=== PATIENT | male | born 1970 | race African-American/Black ===

== ENCOUNTER 2022-02-21 06:04 | Emergency (ER) | payer SELFPAY ==
--- OUTSIDE RECORDS SUMMARY | 2022-02-21 06:07 | XMS REPORT | Continuity of Care Document ---
:1970 Author Organization [facility] t Address [address] [place] [address] Care Team Providers Name Role Phone JOSIAH MELGOZA Attending Clinician Unavailable Payers Payer Name Policy Type Policy Number Effective Date Expiration Date [employer] [id number] 2016 NON-CONTRACT 00:00:00 GENERIC Problems This patient has no known problems. Allergies, Adverse Reactions, Alerts Allergy Allergy Status Severity Reaction(s) Onset Inactive Treating Comm ents Source Name Type Date Date Clinician NO KNOWN Drug Active [facility] ALLERGIE Class [facility] Medications This patient has no known medications. Procedures This patient has no known procedures. Encounters Start End Encounter Admission Attending Care Care Encounter Source Date/Time Date/Time Type Type Clinicians Facility Department ID 2019-11-30 2019-11-30 Outpatient Pop MELGOZA [facility] [id number] [facility] 11:15:00 11:15:00 JOSIAH [facility] Results This patient has no known results.
--- NOTE | 2022-02-21 08:34 | EDPHYS ---
Physician Documentation [facility] Name: Ty Chaudhry Age: 51 yrs Sex: Male : 1970 Arrival Date: 02/21/2022 Time: 06:09 Bed DIS3 Private MD: ED Physician Yoandy Scott HPI: 02/21 08:29 This 51 yrs old Black Male presents to ER via Ambulatory with complaints of Toothache. nikhil 08:29 The patient presents with pain, swelling. The problem is located in the lower left nikhil third molar. Onset: The symptoms/episode began/occurred 3 day(s) ago. Duration: The symptoms are continuous, and are steadily getting worse. Modifying factors: The symptoms are alleviated by nothing, the symptoms are aggravated by chewing, food. Associated signs and symptoms: The patient has no apparent associated signs or symptoms. Severity of symptoms: At their worst the symptoms were mild, in the emergency department the symptoms are unchanged. The patient has not experienced similar symptoms in the past. Historical: - Allergies: 06:43 No Known Allergies; vc1 - Home Meds: 06:43 None [Active]; vc1 - PMHx: 06:43 None; vc1 - PSHx: 06:43 None; vc1 - Immunization history:: Client reports receiving the 2nd dose of the Covid vaccine. - Social history:: Smoking status: Patient denies any tobacco usage or history of. - Family history:: not pertinent. ROS: 08:29 Constitutional: Negative for fever, chills, and weight loss, Eyes: Negative for injury, nikhil pain, redness, and discharge, Neck: Negative for injury, pain, and swelling, Cardiovascular: Negative for chest pain, palpitations, and edema, Respiratory: Negative for shortness of breath, cough, wheezing, and pleuritic chest pain, Abdomen/GI: Negative for abdominal pain, nausea, vomiting, diarrhea, and constipation, Back: Negative for injury and pain, : Negative for injury, bleeding, discharge, and swelling, MS/Extremity: Negative for injury and deformity, Skin: Negative for injury, rash, and discoloration, Neuro: Negative for headache, weakness, numbness, tingling, and seizure, Psych: Negative for depression, anxiety, suicide ideation, homicidal ideation, and hallucinations, Allergy/Immunology: Negative for hives, rash, and allergies, Hematologic/Lymphatic: Negative for swollen nodes, abnormal bleeding, and unusual bruising. 08:29 ENT: Positive for Teeth pain Exam: 08:29 Constitutional: This is a well developed, well nourished patient who is awake, alert, nikhil and in no acute distress. Head/Face: Normocephalic, atraumatic. Eyes: Pupils equal round and reactive to light, extra-ocular motions intact. Lids and lashes normal. Conjunctiva and sclera are non-icteric and not injected. Cornea within normal limits. Periorbital areas with no swelling, redness, or edema. Neck: Trachea midline, no thyromegaly or masses palpated, and no cervical lymphadenopathy. Supple, full range of motion without nuchal rigidity, or vertebral point tenderness. No Meningismus. Chest/axilla: Normal chest wall appearance and motion. Nontender with no deformity. No lesions are appreciated. Cardiovascular: Regular rate and rhythm with a normal S1 and S2. No gallops, murmurs, or rubs. Normal PMI, no JVD. No pulse deficits. Respiratory: Lungs have equal breath sounds bilaterally, clear to auscultation and percussion. No rales, rhonchi or wheezes noted. No increased work of breathing, no retractions or nasal flaring. Abdomen/GI: Soft, non-tender, with normal bowel sounds. No distension or tympany. No guarding or rebound. No evidence of tenderness throughout. Back: No spinal tenderness. No costovertebral tenderness. Full range of motion. Male : Normal genitalia with no discharge or lesions. Skin: Warm, dry with normal turgor. Normal color with no rashes, no lesions, and no evidence of cellulitis. MS/ Extremity: Pulses equal, no cyanosis. Neurovascular intact. Full, normal range of motion. Neuro: Awake and alert, GCS 15, oriented to person, place, time, and situation. Cranial nerves II-XII grossly intact. Motor strength 5/5 in all extremities. Sensory grossly intact. Cerebellar exam normal. Normal gait. Psych: Awake, alert, with orientation to person, place and time. Behavior, mood, and affect are within normal limits. 08:29 ENT: Mouth: Lips: normal, Oral mucosa: normal, pink and intact, moist, Gums: reddened. Vital Signs: 06:42 BP 140 / 81; Pulse 71; Resp 17; Temp 97.0; Pulse Ox 99% ; Weight 77.11 kg; Height 5 ft. vc1 5 in. (165.10 cm); Pain 8/10; 06:42 Body Mass Index 28.29 (77.11 kg, 165.10 cm) vc1 MDM: 07:17 Patient medically screened. nikhil 08:31 Differential diagnosis: dental caries, gingivitis, dental abscess. Data reviewed: vital nikhil signs, nurses notes. Data interpreted: desk monitor: rate is 71 beats/min, rhythm is regular, Pulse oximetry: on room air is 99 %. Counseling: I had a detailed discussion with the patient and/or guardian regarding: the historical points, exam findings, and any diagnostic results supporting the discharge/admit diagnosis, the need for outpatient follow up, for definitive care, a dentist, an oral maxilofacial specialist. Administered Medications: 08:48 Drug: Augmentin (Amoxicillin-Clavulanate) 875 mg Route: PO; iw 09:10 Follow up: Response: No adverse reaction iw Disposition Summary: 02/21/22 08:33 Discharge Ordered Location: Home nikhil Problem: new nikhil Symptoms: have improved nikhil Condition: Stable nikhil Diagnosis - Dental caries, unspecified nikhil - Dental root caries nikhil Followup: nikhil - With: Private Physician - When: 2 - 3 days - Reason: Recheck today's complaints, Continuance of care, Re-evaluation by your physician Followup: nikhil - With: Ty Strickland DDS - When: 2 - 3 days - Reason: Recheck today's complaints, Continuance of care, Re-evaluation by your physician Discharge Instructions: - Discharge Summary Sheet nikhil - Dental Caries, Adult nikhil - Dental Pain nikhil - Dental Pain, [id number] nikhil - Diet and Dental Disease nikhil - Preventive Dental Care, Adult [facility] Forms: - Medication Reconciliation Form nikhil - Thank You Letter nikhil - Antibiotic Education [facility] - Prescription Opioid Use [facility] Prescriptions: - Amoxicillin 500 mg Oral Capsule - take 1 capsule by ORAL route every 8 hours for 10 days; 30 tablet; Refills: 0, nikhil Product Selection Permitted - Tylenol-Codeine #3 300 mg-30 mg Oral - take 2 tablet by ORAL route every 6 hours; 20 tablet; Refills: 0, Product [facility] Selection Permitted Signatures: Yoandy Scott MD MD cha Williams, Irene RN RN iw Leny Randall, RN RN vc1
--- NOTE | 2022-02-21 08:34 | ER ---
Nurse's Notes [facility] Name: Ty Chaudhry Age: 51 yrs Sex: Male : 1970 Arrival Date: 02/21/2022 Time: 06:09 Bed DIS3 Private MD: Diagnosis: Dental caries, unspecified;Dental root caries Presentation: 02/21 06:41 Chief complaint: Patient states: I've had a bad toothache for a couple of weeks. It is vc1 in the back top left of my mouth. I'm just worried because I ended up on a ventilator in 1997 because of an infected tooth.". 06:42 Coronavirus screen: Vaccine status: Patient reports receiving the 2nd dose of the covid vc1 vaccine. Plus booster; [employer] At this time, the client does not indicate any symptoms associated with coronavirus-19. Ebola Screen: No symptoms or risks identified at this time. Initial Sepsis Screen: Does the patient meet any 2 criteria? No. Patient's initial sepsis screen is negative. Does the patient have a suspected source of infection? No. Patient's initial sepsis screen is negative. Risk Assessment: Do you want to hurt yourself or someone else? Patient reports no desire to harm self or others. Onset of symptoms is unknown. 06:42 Method Of Arrival: Ambulatory vc1 06:42 Acuity: CAROLYN 5 vc1 Triage Assessment: 06:44 General: Appears in no apparent distress. uncomfortable, Behavior is calm, cooperative, vc1 appropriate for age. Pain: Complains of pain in lower left third molar Pain currently is 8 out of 10 on a pain scale. EENT: Reports pain in lower left third molar. Neuro: Level of Consciousness is awake, alert, obeys commands, Oriented to person, place, time, situation, Appropriate for age. Cardiovascular: No deficits noted. Respiratory: No deficits noted. GI: No deficits noted. : No deficits noted. Derm: No deficits noted. Historical: - Allergies: 06:43 No Known Allergies; vc1 - Home Meds: 06:43 None [Active]; vc1 - PMHx: 06:43 None; vc1 - PSHx: 06:43 None; vc1 - Immunization history:: Client reports receiving the 2nd dose of the Covid vaccine. - Social history:: Smoking status: Patient denies any tobacco usage or history of. - Family history:: not pertinent. Screenin:44 Abuse screen: Denies threats or abuse. Nutritional screening: No deficits noted. vc1 Tuberculosis screening: No symptoms or risk factors identified. Fall Risk None identified. Vital Signs: 06:42 BP 140 / 81; Pulse 71; Resp 17; Temp 97.0; Pulse Ox 99% ; Weight 77.11 kg; Height 5 ft. vc1 5 in. (165.10 cm); Pain 8/10; 06:42 Body Mass Index 28.29 (77.11 kg, 165.10 cm) vc1 ED Course: 06:09 Patient arrived in ED. bp1 06:43 Triage completed. vc1 06:46 Arm band placed on left wrist. vc1 06:46 Patient has correct armband on for positive identification. vc1 07:17 Yoandy Scott MD is Attending Physician. nikhil 08:14 Yue Fernandes, RN is Primary Nurse. iw 08:33 Ty Strickland DDS is Referral Physician. nikhil Administered Medications: 08:48 Drug: Augmentin (Amoxicillin-Clavulanate) 875 mg Route: PO; iw 09:10 Follow up: Response: No adverse reaction iw Medication: 06:44 VIS not applicable for this client. vc1 Outcome: 08:33 Discharge ordered by . nikhil 08:49 Patient left the ED. iw Signatures: Yoandy Scott MD MD cha Williams, Irene, RN RN iw Miesha Escamilla Vanessa, RN RN vc1
[2022-02-21] MEDS ORDERED: AMOX/K CLAV 875 MG TAB ONE (08:46)
[2022-02-21 08:54] VITALS: BP 140/81; TEMP 97; O2SAT 99
== END 2022-02-21 08:49 | disposition home or self-care (01) ==
LOC: ER 06:04
DX: K02.9 Dental caries, unspecified (principal); K02.7 Dental root caries
CPT/HCPCS: 99282